=== PATIENT | female | born 2000 | race Caucasian/White ===

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

== ENCOUNTER 2022-11-30 15:20 | Emergency (ER) | payer SELFPAY ==
[2022-11-30 15:59] VITALS: BP 131/65; PULSE 107; RESP 16; TEMP 36.9; O2SAT 98; BMI 32.3
--- NOTE | 2022-11-30 16:08 | PC.NURSE ---
dr. merino at [facility]
--- NOTE | 2022-11-30 16:15 | ECG_ITS ---
APPROVED REPORT Exam: Resting ECG HR:96 bpm ECG Measurements Heart Rate 96 AXES ME 180 P 67 QRSd 93 QRS 77 QT 361 T 28 QTc 414 Conclusion SINUS RHYTHM POSSIBLE RIGHT VENTRICULAR CONDUCTION DELAY [RSR (QR) IN V1/V2] BORDERLINE ECG UNCONFIRMED REPORT Electronically signed by : Ravi Munoz MD 12/02/2022 17:22:40
--- NOTE | 2022-11-30 16:16 | HMH.EDGENADL ---
Discharge Plan Disposition Patient Disposition: Home, Self-Care Prescriptions Prescriptions: New nitrofurantoin monohyd/m-cryst [Macrobid] 100 mg capsule 100 mg PO BID 5 Days Qty: 10 0RF Rx Instructions: must administer with a meal/food No Action doxylamine succinate 25 MG tablet 25 mg PO HS Referrals Follow up/Referrals: Provider,Referral, [Primary Care Provider] - See instructions Activity Restrictions/Add. Instructions Additional Instructions/Restrictions: At this time it was felt you are safe to be discharged home. If new or worsening symptoms please do not hesitate to return the emergency department. Please follow-up with your OB as soon as you are able. Please take your antibiotics as prescribed. Clinical Impressions Clinical Impression: Syncope, vasovagal, Hypokalemia, Asymptomatic bacteriuria Instructions Patient Instructions: DI for Syncope in Adults (Fainting) Discharge ED Provider: Jasper Chacko General Adult HPI General Chief complaint: Syncope Stated complaint: 17 wks preg, light-headed Time Seen by Provider: 11/30/22 16:07 Mode of Arrival: Ambulatory Source of Information: Patient Limitations: No Limitations Description of Symptoms (Recalled from ER Triage Doc. by RN): Pt reports became light head and fainted in grocery store. Pt reports hit the back of her head on a shelf. Pt reprots has felt lightheaded and had a headache since syncope episode. Pt reports has not felt well all weekend . Pt reports is 17 weeks gestation, states has had a few lightheaded episodes while being but has not passed out before. History of Present Illness HPI narrative: Patient is a 22-year-old female , currently 17 weeks who presents emergency department for evaluation of syncope. History is obtained by patient at bedside. At approximately 10:30 AM patient had just eaten, arose from a seated position out of her car and was inside a shopping market when she lost consciousness falling back striking her head. No vaginal bleeding. Patient has had a posterior and frontal headache without associated photophobia, no vomiting, no blood thinners. She presents here for continued evaluation. No other acute complaints at this time. Related Data Home Medications Medication Instructions Recorded Confirmed doxylamine succinate 25 mg tablet 25 mg PO HS . 01/14/21 01/14/21 Previous Rx's Medication Instructions Recorded nitrofurantoin 100 mg PO BID 5 days #10 caps 11/30/22 monohydrate/macrocrystals 100 mg capsule (Macrobid) Allergies Allergy/AdvReac Type Severity Reaction Status Date / Time No Known Allergies Allergy Verified 01/14/21 22:35 [facility] Disclaimer: The information contained in this section may have been updated after the patient was seen, as this information can be updated by other users. Social History Smoking Status: Former smoker alcohol intake: never current occupational status: other Travel in the last 8 weeks: None ROS Obtained: Yes Systems reviewed as appropriate & no additional complaints except as documented Physical Exam General General appearance: alert and in no apparent distress Head Head exam: atraumatic and normocephalic Eye Eye exam: Present PERRL and EOMI ENT ENT exam: Present mucous membranes moist Neck Neck exam: Present normal inspection Chest Chest inspection: Present normal inspection and symmetric chest wall rise Respiratory Respiratory exam: Present normal lung sounds bilaterally; Absent respiratory distress Cardiovascular Cardiovascular exam: Present normal rhythm and tachycardia Abdominal Exam Abdominal exam: Present other (Gravid); Absent tenderness, guarding or rebound Extremities Exam Extremities exam: Present normal inspection Neurological Exam Neurological exam: Present alert and CN II-XII intact; Absent motor sensory deficit Psychiatric Psychiatric exam: Present normal affect Skin Ski
[2022-11-30 16:21] LABS: Microscopic, Urine URINE MICROSCOPIC (MICROSCOPIC)
[2022-11-30 16:25] LABS: Basophils % 0.3 % (0.1-2.0); Eosinophils # 0.2 K/mm3 (0.0-0.4); Eosinophils % 1.9 % (0.1-12.0); Hematocrit 40.4 % (37.0-47.0); Hemoglobin 13.3 g/dL (12.2-16.2); Lymphocytes # 2.2 K/mm3 (0.7-4.5); Lymphocytes % 22.7 % (10-50); Mean Corpuscular HGB Conc 32.8 g/dL (31.8-35.4); Mean Corpuscular Hemoglobin 31.5 pg (27.0-31.2); Mean Platelet Volume 7.8 fl (7.4-10.4); Monocytes # 0.6 K/mm3 (0.1-1.0); Monocytes % 5.8 % (1.7-9.3); Neutrophils # 6.6 K/mm3 (1.8-7.8); Neutrophils % 69.3 % (37.0-80.0); Platelet Count 290 K/mm3 (142-424); Red Blood Count 4.21 M/mm3 (4.20-5.40); Red Cell Distribution Width 13.3 % (11.5-17.5); White Blood Count 9.5 K/mm3 (4.5-13.0)
[2022-11-30 16:28] VITALS: BP 126/61; PULSE 104; RESP 16; O2SAT 98
[2022-11-30 16:28] LABS: Appearance,Urine CLEAR (Clear); Bilirubin,Urine Negative (Negative); Blood, Urine Negative (Negative); Color,Urine YELLOW (Yellow); Glucose,Urine (UA) 3+ (Negative); Ketones,Urine TRACE (Negative); Leukocyte Esterase,Urine Negative (Negative); Nitrate,Urine Negative (Negative); Protein,Urine Negative (Negative); Specific Gravity, Urine >= 1.030 (1.005-1.030)
[2022-11-30 16:28] LABS: Chloride 109 mmol/L (98-107); Potassium 3.3 mmoL/L (3.5-5.1); Sodium 137 mmol/L (136-145)
[2022-11-30 16:30] VITALS: BP 113/64; PULSE 102; RESP 16; O2SAT 98
[2022-11-30 16:31] LABS: Alanine Aminotransferase 20 U/L (12-78); Albumin Level 3.5 g/dl (3.5-5.0); Albumin/Globulin Ratio 1.3 (1.1-1.8); Alkaline Phosphatase 33 U/L (38-126); Anion Gap 11.3 mEq/L (5-15); Aspartate Amino Transferase 23 U/L (14-36); Blood Urea Nitrogen 6 mg/dl (7-17); Calcium 8.1 mg/dl (8.4-10.2); Carbon Dioxide 20 mmol/L (22.0-30.0); Creatinine Clearance Estimated 227 mL/min (50-200); Estimated Glomerular Filt Rate 157 ml/min (>60); GFR (African American) 190 ML/MIN (>60); Globulin 2.7 g/dL (1.3-3.2); Glucose 151 mg/dl (74-100); Total Protein,Serum 6.2 g/dl (6.3-8.2)
[2022-11-30 16:51] LABS: Bilirubin,Total < 0.1 mg/dl (0.2-1.3)
[2022-11-30 16:53] LABS: Bacteria,Urine 1+ /lpf; WBC,Urine Occasional #/hpf (0-3)
[2022-11-30 17:00] VITALS: BP 105/57; PULSE 100; RESP 16; O2SAT 99
[2022-11-30 17:07] LABS: Magnesium 1.8 mg/dl (1.6-2.3)
--- NOTE | 2022-11-30 17:08 | PC.NURSE ---
Rounded on patient; call light within reach of patient
[2022-11-30 17:32] VITALS: BP 105/57; PULSE 100; RESP 16; TEMP 36.9; O2SAT 98
== END 2022-11-30 17:36 | disposition home or self-care (01) ==
LOC: UTC 15:26 → ER 15:40
PROVIDERS: Emergency Provider Emergency Medicine
DX: O23.42 Unspecified infection of urinary tract in pregnancy, second trimester (principal); O99.282 Endocrine, nutritional and metabolic diseases complicating pregnancy, second trimester; O26.892 Other specified pregnancy related conditions, second trimester; E87.6 Hypokalemia; R55 Syncope and collapse; Z3A.17 17 weeks gestation of pregnancy; Z87.891 Personal history of nicotine dependence
CPT/HCPCS: 80053; 81001; 83735; 85025; 93005; 96374; 99285; J0131